=== PATIENT | female | born 1965 | race Caucasian/White ===

== ENCOUNTER 2020-06-03 08:46 | Emergency (ER) | payer SELFPAY ==
[2020-06-03 08:56] VITALS: BP 149/105; PULSE 75; RESP 16; TEMP 35.6; O2SAT 98; BMI 38.7
--- NOTE | 2020-06-03 09:45 | CT_ITS ---
EXAMINATION: CT ABDOMEN AND PELVIS WITHOUT CONTRAST CLINICAL INFORMATION: Left lower back pain radiating to left flank COMPARISON: CT abdomen and pelvis 08/17/2016 TECHNIQUE: Multidetector volumetric imaging was performed from the superior aspect of the liver through the pubic symphysis. Sagittal and coronal reformatted images were obtained on the technologist's workstation. This CT examination was performed using dose optimization techniques as appropriate, variously including the following: *Automated exposure control *Adjustment of mA and/or kV according to patient size (this includes techniques or standardized protocols for targeted exams where dose is matched to indication/reason for exam; i.e. extremities or head) *Use of iterative reconstruction technique DLP: 1102 mGy-cm FINDINGS: LUNG BASES: The visualized lung bases are unremarkable. LIVER, GALLBLADDER, AND BILIARY TREE: The liver is normal in size, shape, and attenuation. No focal hepatic lesion or biliary ductal dilatation is present. There are 2 radiopaque gallstones without wall thickening. The largest radiopaque stone measures 1.9 cm. PANCREAS: Unremarkable. SPLEEN: Unremarkable. ADRENAL GLANDS: Unremarkable. KIDNEYS AND URETERS: The kidneys are normal in size, shape, and attenuation. No hydronephrosis, hydroureter, or calculi seen. No perinephric stranding. There are left parapelvic renal cyst. BLADDER: Unremarkable. GASTROINTESTINAL TRACT: There is scattered stool, diverticuli and gas seen throughout the colon without significant distention. The small bowel loops are normal caliber. Appendix is normal. No inflammatory process seen in the abdomen. There is no free fluid. ABDOMINAL WALL: There is a supraumbilical midline abdominal wall hernia with intraperitoneal fat and trace fluid within. LYMPH NODES: Normal. VASCULAR: Unremarkable. PELVIC VISCERA: The uterus is anteverted and appears unremarkable. No free fluid or free air seen. OSSEOUS STRUCTURES: Minimal degenerative disc changes are present throughout lumbar spine. No listhesis, lytic or sclerotic process seen. IMPRESSION: Cholelithiasis without wall thickening or surrounding inflammatory changes. No change from last CT. Supraorbital small abdominal midline hernia with intraperitoneal fat and trace fluid, unchanged to previous study. Left renal parapelvic cyst. No radiopaque renal calculi or hydronephrosis seen. Scattered colonic diverticulosis without diverticulitis.
--- NOTE | 2020-06-03 10:03 | ED_ITS ---
HPI - Back Pain/Injury General Chief Complaint: Back Pain/Injury Stated Complaint: back pain Time Seen by Provider: 06/03/20 09:14 Source: patient Mode of arrival: ambulatory Limitations: no limitations History of Present Illness HPI Narrative: 54yoF c No Sig PMHx presenting to the ED c c/o left back pain for a few days now since this AM radiating to left flank/abdomen/groin c associated diarrhea. Related Data Previous Rx's Medication Instructions Recorded cyclobenzaprine 10 mg PO TID PRN #10 tab 06/03/20 lidocaine [Lidoderm] 1 patch TOPICAL DAILY #30 ea NS 06/03/20 naproxen 500 mg PO BID PRN #10 tab 06/03/20 tramadol 50 mg PO Q8H PRN #10 tab 06/03/20 Allergies Allergy/AdvReac Type Severity Reaction Status Date / Time No Known Allergies Allergy Unknown Unverified 05/02/20 16:12 Review of Systems Review of Systems: Denies: Trauma; FCS; Rash; H/A; CP; SOB; Neck Pain; N/V; UTI sx; Hematuria; Bowel/Bladder Incont; Focal weakness; Numbness; Radiation; Extr pain or swelling Yes all other systems are reviewed and are negative PMFSH Past Medical History Attestation statement: The following information was validated with the patient. Medical History No known health problems No known health problems Social History Social History Advance Directives: No Advance Directives Information Provided: Yes Physical Exam Vital Signs: Vital Signs: Vital Signs Temp Pulse Resp BP Pulse Ox 06/03/20 08:56 96.1 F L 75 16 149/105 H 98 Body Mass Index 38.7 vital signs have been reviewed as normal and appeared to be correct. Blood pressure normal. Heart rate normal. Respiration rate normal. Temperature normal. Oxygen saturation normal. Appearance: Alert. Oriented X3. No acute distress. Head: Normal external exam. Normocephalic. Atraumatic. No Beckman signs noted. No raccoon eyes noted Eyes: PERRLA. EOMI. Conjunctiva and sclera normal. Eyelids normal. ENT: EAC normal. TM's Normal. Pharynx normal. Uvula midline. Moist mucous membranes. No trismus noted. No drooling noted. No muffled voice noted. Neck: Normal inspection. Neck supple. FROM. No adenopathy. Thyroid Normal. No meningeal signs. No neck mass noted. CVS: Normal heart rate and rhythm. Heart sound normal. No murmurs noted. Pulses normal throughout. Respiratory: No respiratory distress. Painless inspiration. Breath sounds normal. No wheezes/rales/rhonchi noted. Chest nontender. No accessory muscle usage noted or decreased air movement noted. Abdomen: Soft and nontender. Bowel sounds normal in all 4 quadrants. No distention noted. No organomegaly noted. No visible injury noted. Back: No CVA tenderness. Full range of motion noted. No obvious deformities, or edema. Mild para-spinal muscular tenderness from lumbar region to coccyx. Full ROM in back and lower extremities. 5/5 strength hip extension/flexion, abduction, adduction. Mild Lumbar pain with hip flexion against resistance. Straight leg raise test negative on right; Straight leg raise test negative on left; Reflexes normal ankle and knee bilaterally; EHL motor strength normal bilaterally Skin: Skin warm and dry. Normal skin color. Normal skin turgor. No rashes/lesions/lacerations noted. Extremities: No lower extremity edema. Extremities exhibit normal range of motion. Extremities nontender. Neuro: Oriented X 3. No motor deficit. No sensory deficit. Reflexes normal. Course Course Course Narrative: Pt c likely muscular pain, but could be herniated disc. Neuro exam shows no deficits. Not c/w AAA/epidural abscess/dissection.No high risk Hx (Incont, fever, immunosupp, recent surgery/LP, coag, signif trauma, wt loss, puls mass, hx/o Ca, TB, or IVDU) to warrant MRI today. We will obtain a CT scan of abdomen and pelvis due to patient having pain radiating from the back to the left flank to the groin to evaluate for possible kidney stones and UA. Not c/w spinal fx. Not cauda equina syndrome. DC c meds and f/u if ct scan abd/pelvis without contrast WNL. MDM - Back Pain/Injury Medical Records Attestation: I reviewed the patient's medical records. Lab Data Attestation: I reviewed the patient's lab results. Labs: Lab Results 06/03/20 Range/Units 09:36 Urine Color YELLOW Urine Appearance CLEAR Urine pH 6.0 (5.0-8.0) Ur Specific [place] 1.020 (1.005-1.025) Urine Protein NEG (NEG-TRACE) MG/DL Urine Glucose (UA) NEG (NEG) MG/DL Urine Ketones NEG (NEG) MG/DL Urine Blood NEG (NEG) Urine Nitrite NEG (NEG) Ur Leukocyte Esterase NEG (NEG) Imaging Data CT scan - abdomen: Attestation: I personally reviewed and interpreted this imaging study as follows: Radiologist's impression: IMPRESSION: Cholelithiasis without wall thickening or surrounding inflammatory changes. No change from last CT. Supraorbital small abdominal midline hernia with intraperitoneal fat and trace fluid, unchanged to previous study. Left renal parapelvic cyst. No radiopaque renal calculi or hydronephrosis seen. Scattered colonic diverticulosis without diverticulitis. Discharge Plan Discharge Clinical Impression: Degenerative disc disease, lumbar, Diverticulosis, Renal cyst, Abdominal hernia, Cholelithiasis Patient Disposition: Home, Self-Care Instructions: Gallstones (ED), Diverticulosis (ED), Umbilical Hernia (ED), Degenerative Disc Disease (ED) Additional Instructions: follow-up with her primary care provider. Return if any new or worsening symptoms. Prescriptions: New cyclobenzaprine 10 mg tablet 10 mg PO TID PRN (Reason: muscle spasm) Qty: 10 RF: 0 naproxen 500 mg tablet 500 mg PO BID PRN (Reason: pain) Qty: 10 RF: 0 tramadol 50 mg tablet 50 mg PO Q8H PRN (Reason: pain) Qty: 10 RF: 0 lidocaine [Lidoderm] 5 % adhesive patch,medicated 1 patch topical DAILY Qty: 30 RF: 0
[2020-06-03 10:04] LABS: Glucose Urine UA NEG (NEG); Leukocyte Esterase Urine NEG (NEG); Nitrite Urine NEG (NEG); Urine Blood NEG (NEG); Urine Ketones NEG (NEG); Urine Protein NEG (NEG-TRACE)
[2020-06-03 10:07] LABS: Appearance Urine CLEAR; Color Urine YELLOW
[2020-06-03] MEDS: NaPROXEN 500 MG TABLET PO (10:24)
[2020-06-03] MEDS: Lidocaine 4 % Patch ADH..PATCH 1 PATCH TRANSDERMA (10:24)
== END 2020-06-03 11:40 | disposition home or self-care (01) ==
PROVIDERS: Physician Assistant Medical; Emergency Provider Emergency Medicine
DX: K80.20 Calculus of gallbladder without cholecystitis without obstruction (principal); M47.896 Other spondylosis, lumbar region; N28.1 Cyst of kidney, acquired; M54.5 Low back pain; Z79.899 Other long term (current) drug therapy
CPT/HCPCS: 74176; 81003; 99283; 99284

== ENCOUNTER 2020-09-02 20:57 | Emergency (ER) | payer OTHER, SELFPAY ==
[2020-09-02 21:19] VITALS: BP 135/75; PULSE 92; RESP 18; TEMP 37.1; O2SAT 97; BMI 38.7
[2020-09-02 23:55] VITALS: BP 143/86; PULSE 98; RESP 17; TEMP 37.2; O2SAT 100
--- NOTE | 2020-09-03 00:11 | ED_ITS ---
HPI - Animal Bite General Chief Complaint: Animal Bite Stated Complaint: Cat bite Time Seen by Provider: 09/02/20 23:59 Source: patient Mode of arrival: ambulatory Limitations: no limitations History of Present Illness HPI narrative: Patient comes emergency room complaining of a cat bites to the left distal forearm. Patient states it is an indoor cat, is fully immunized, it is her own cat. Patient states that her cat is very ?needy? constantly scratches her for attention and sometimes Pfizer, but yesterday it was a more severe bite. This morning, patient woke up with redness over the bite wounds on the wrist with streaks of redness extending into the proximal part of her arm. Patient states it is very tender to touch. Patient has had some chills, no fever. MD complaint: animal bite Related Data Previous Rx's Medication Instructions Recorded cyclobenzaprine 10 mg PO TID PRN #10 tab 06/03/20 lidocaine [Lidoderm] 1 patch TOPICAL DAILY #30 ea NS 06/03/20 naproxen 500 mg PO BID PRN #10 tab 06/03/20 tramadol 50 mg PO Q8H PRN #10 tab 06/03/20 amoxicillin-pot clavulanate 1 tab PO Q12H #20 tab 09/03/20 [Augmentin] Allergies Allergy/AdvReac Type Severity Reaction Status Date / Time No Known Allergies Allergy Unknown Verified 09/02/20 21:19 Review of Systems Review of Systems: Constitutional : No fever, chills, no fatigue, no malaise ENT/Mouth : No Hearing loss, No Ear Pain, No Nasal Congestion, No Sinus Pain, No Hoarseness, No sore throat, No Rhinorrhea, No Swallowing Difficulty Eyes: No Eye Pain, No Swelling, No Redness, No Foreign Body, No Discharge, No Vision Changes Cardiovascular : No Chest Pain, No SOB, No Dyspnea on Exertion, No Orthopnea, No Edema, No Palpitations Respiratory : No Cough, No Sputum, No Wheezing, No Smoke Exposure, No Dyspnea Gastrointestinal : No Nausea, No Vomiting, No Diarrhea, No Constipation, No abdominal Pain, No Hematochezia, No Melena Genitourinary : no irregular bleeding, No Dysuria, No Urinary Frequency, No Hematuria, No Urinary Incontinence, No Urgency, No Flank Pain, No Urinary Flow Changes, No Hesitancy Musculoskeletal : No joint pain, No Myalgias, No Joint Swelling Skin : Puncture wound from a cat bite and erythema and pain on the left forearm Neuro : No Weakness, No Numbness, No Paresthesias, No Loss of Consciousness, No Dizziness, No Headache Psych : No Anxiety/Panic, No Depression, No SI/HI/AH/VH, No Social Issues, Heme/Lymph: No Bruising, No Bleeding,No Lymphadenopathy Endocrine : No Polyuria, No Polydipsia, No Temperature Intolerance PMF Past Medical History Medical History No known health problems No known health problems Social History Social History Advance Directives: No Physical Exam Vital Signs: Vital Signs: Last Vital Signs Temp 99.0 F 09/02/20 23:55 Pulse 98 09/02/20 23:55 Resp 17 09/02/20 23:55 BP 143/86 H 09/02/20 23:55 Pulse Ox 100 09/02/20 23:55 Body Mass Index 38.7 Appearance: Alert. Oriented X3. No acute distress. Eyes: Pupils equal, round and reactive to light. ENT: Pharynx normal. Neck: Normal inspection. Neck supple. No lymph nodes noted. No crepitus CVS: Normal heart rate and rhythm. Pulses normal. Normal S1 and S2 Respiratory: No respiratory distress. Breath sounds normal. No Wheezing. No rales Abdomen: Soft and nontender. No rigidity. No distention. good BS x4 Skin: Skin warm and dry. Erythema in the left upper extremity with this streaks running up towards the elbow Extremities: No lower extremity edema. Left arm is tender to touch over the erythematous sites, no pus drainage. Patient is able to flex and extend wrist elbow and shoulder, patient able to open and close all fingers in her left hand Neuro: Oriented X 3. No motor deficit. No sensory deficit. Moving all extermities. No slurred speech. Course Course Course Narrative: Patient received IV Zosyn, white blood cell count is 11.6, lactic acid 0.9, patient has no fever, no tachycardia, feels otherwise well. At this time sepsis is not suspected. I discussed with the patient continuing IV antibiotics inpatient versus outpatient p.o. antibiotics, patient states that she prefers to go home. I discussed with the patient that if she has any worsening redness, swelling, fever, any new symptoms, she needs to return to the emergency room. MDM - Animal Bite Lab Data Result diagrams: 09/03/20 00:22 09/03/20 00:22 Labs: Lab Results 09/03/20 09/03/20 09/03/20 Range/Units 00:22 00:22 00:22 WBC 11.6 H (4.8-10.8) X10*3/uL RBC 4.62 (4.20-5.50) X10*6/uL Hgb 13.1 (12.0-16.0) g/dl Hct 39.3 (37-47) % MCV 85.1 (80-98) fL MCH 28.4 (27.0-33.0) pg MCHC 33.3 (31.0-35.0) g/dl RDW 13.5 (11.0-16.0) % Plt Count 288 (160-400) X10*3/uL MPV 10.1 (9.4-12.3) fL Immature Gran % (Auto) 0.3 (0.0-0.4) % Neut % (Auto) 77.3 H (45-73) % Lymph % (Auto) 13.8 L (20-40) % [place] % (Auto) 7.8 (2-11) % Eos % (Auto) 0.5 (0-4) % Baso % (Auto) 0.3 (0-2) % Lymph # (Auto) 1.6 (1.2-4.9) X10*3/uL [place] # (Auto) 0.9 (0.1-1.2) X10*3/uL Eos # (Auto) 0.1 (0.0-0.4) X10*3/uL Baso # (Auto) 0.0 (0.0-0.2) X10*3/uL Abs Immat Gran (auto) 0.03 (0.00-0.03) X10*3/uL Absolute Neuts (auto) 9.0 H (2.0-8.3) X10*3/uL Absolute Nucleated RBC 0.000 (0.0-0.012) X10*3/uL Nucleated RBC % (auto) 0.0 (0.0-0.2) /100WBC Sodium 140 (135-145) mmol/L Potassium 4.1 (3.3-5.1) mmol/l Chloride 104 (96-108) mmol/L Carbon Dioxide 24 (22-29) mmol/L Anion Gap 16 (12-20) BUN 15 (9-16) mg/dL Creatinine 0.72 (0.5-1.4) mg/dL Estim Creat Clear Calc 111.5 Estimated GFR > 60 Random Glucose 99 (60-115) mg/dL Lactic Acid 0.9 (0.5-2.0) mmol/L Calcium 9.0 (8.4-10.2) mg/dL Discharge Plan Discharge Clinical Impression: Cat bite Patient Disposition: Home, Self-Care Instructions: Animal Bite (ED) Additional Instructions: If the skin infection worsens, if you see any pus draining, worsening redness, worsening swelling, fever or any new symptoms, please return to the emergency room. Please follow-up with your primary care physician tomorrow. If you have any worsening or new symptoms, please return to the emergency room or call 911 Prescriptions: New amoxicillin-pot clavulanate [Augmentin] 875-125 mg tablet 1 tab PO Q12H Qty: 20 RF: 0 No Action cyclobenzaprine 10 mg tablet 10 mg PO TID PRN (Reason: muscle spasm) Qty: 10 RF: 0 naproxen 500 mg tablet 500 mg PO BID PRN (Reason: pain) Qty: 10 RF: 0 tramadol 50 mg tablet 50 mg PO Q8H PRN (Reason: pain) Qty: 10 RF: 0 lidocaine [Lidoderm] 5 % adhesive patch,medicated 1 patch topical DAILY Qty: 30 RF: 0
[2020-09-03 00:31] LABS: MANUAL DIFF FLAG NO
[2020-09-03 00:32] LABS: Basophils Percent Auto 0.3 % (0-2); Eosinophils Absolute Auto 0.1 X10*3/uL (0.0-0.4); Eosinophils Percent Auto 0.5 % (0-4); Hematocrit 39.3 % (37-47); Hemoglobin 13.1 g/dl (12.0-16.0); Imm Gran Abs Auto 0.03 X10*3/uL (0.00-0.03); Imm Gran Pct Auto 0.3 % (0.0-0.4); Lymphocytes Absolute Auto 1.6 X10*3/uL (1.2-4.9); Lymphocytes Percent Auto 13.8 % (20-40); Mean Corpuscular HGB Conc 33.3 g/dl (31.0-35.0); Mean Corpuscular Hemoglobin 28.4 pg (27.0-33.0); Mean Corpuscular Volume 85.1 fL (80-98); Mean Platelet Volume 10.1 fL (9.4-12.3); Monocytes Absolute Auto 0.9 X10*3/uL (0.1-1.2); Monocytes Percent Auto 7.8 % (2-11); Neutrophils Percent Auto 77.3 % (45-73); Platelet Count 288 X10*3/uL (160-400); Red Blood Count 4.62 X10*6/uL (4.20-5.50); Red Cell Distribution Width 13.5 % (11.0-16.0); White Blood Count 11.6 X10*3/uL (4.8-10.8)
[2020-09-03 00:51] LABS: Lactic Acid 0.9 mmol/L (0.5-2.0)
[2020-09-03 00:55] LABS: Anion Gap 16 (12-20); Blood Urea Nitrogen 15 mg/dL (9-16); Carbon Dioxide 24 mmol/L (22-29); Chloride 104 mmol/L (96-108); Creatinine Clr Calc Pharmacy 111.5; Estimated Glomerular Filt Rate > 60; Glucose Random 99 mg/dL (60-115); Potassium 4.1 mmol/l (3.3-5.1); Sodium 140 mmol/L (135-145)
[2020-09-03] MEDS: Piperacillin Sodium/Tazobactam 3.375 GM in 0.9 % Sodium Chloride 50 ML IV (01:04)
== END 2020-09-03 02:31 | disposition home or self-care (01) ==
PROVIDERS: Emergency Provider Emergency Medicine
DX: S51.852A Open bite of left forearm, initial encounter (principal); W55.01XA Bitten by cat, initial encounter; Y93.9 Activity, unspecified; Y92.019 Unspecified place in single-family (private) house as the place of occurrence of the external cause; Y99.9 Unspecified external cause status
CPT/HCPCS: 36415; 80048; 83605; 85025; 87040; 96365; 99284; J2543

== ENCOUNTER 2020-09-04 19:38 | Inpatient (IN) | payer OTHER, SELFPAY ==
[2020-09-04 19:42] VITALS: BP 127/76; PULSE 79; RESP 18; TEMP 36.3; O2SAT 100; BMI 45.1
--- NOTE | 2020-09-04 20:11 | ED.GENADULT ---
HPI - General Adult General Chief complaint: General Medical Stated complaint: cat bite Time Seen by Provider: 09/05/20 00:00 Source: patient Mode of arrival: ambulatory Limitations: no limitations History of Present Illness HPI narrative: Patient presents to ED for worsening redness of left forearm after being bitten by CT. Patient was seen here 2 days ago for cat bite and only had redness on the dorsal aspect of her arm. Patient now states redness spread beyond the marker nurse increased swelling with warmth. Patient denies any chest pain or shortness of breath. Patient states she has been compliant with antibiotics. Related Data Home Medications Medication Instructions Recorded Confirmed Vitamin C PO DAILY 09/05/20 melatonin PO BEDTIME 09/05/20 Allergies Allergy/AdvReac Type Severity Reaction Status Date / Time No Known Allergies Allergy Unknown Verified 09/02/20 21:19 Review of Systems Review of Systems: Yes all other systems are reviewed and are negative Constitutional: Constitutional: Reports as per HPI and Reports no additional constitutional complaints Eyes: Eyes: Reports as per HPI and Reports no additional eye complaints ENT: Reports system reviewed and no additional complaints, except as documented and Reports as per HPI Cardiovascular: Cardiovascular: Reports as per HPI and Reports no additional cardiovascular complaints Respiratory: Respiratory: Reports as per HPI and Reports no additional respiratory complaints Gastrointestinal: Gastrointestinal: Reports as per HPI and Reports no additional gastrointestinal complaints Genitourinary: Genitourinary: Reports no additional female genitourinary complaints and Reports as per HPI Musculoskeletal: Musculoskeletal: Reports no additional musculoskeletal complaints and Reports as per HPI Comments: Right forearm redness Neurologic: Reports system reviewed and no additional complaints, except as documented and Reports as per HPI Psychiatric: Psychiatric: Reports no additional psychiatric complaints and Reports as per HPI [facility] Past Medical History Medical History No known health problems No known health problems Social History Social History Advance Directives: No Advance Directives Information Provided: No Physical Exam Vital Signs: Vital Signs: Last Vital Signs Temp 98.3 F 09/04/20 22:07 Pulse 73 09/04/20 22:07 Resp 17 09/04/20 22:07 BP 129/67 09/04/20 22:07 Pulse Ox 98 09/04/20 22:07 Body Mass Index 45.1 Const: General: cooperative, healthy appearing, comfortable, no acute distress, well developed, alert and awake Orientation/consciousness: patient oriented x3 HENMT: Head: Yes normal to inspection, Yes No palpable skull fracture present, Yes normocephalic and Yes atraumatic Eyes: General: appearance normal, both eyes and all related structures Neck: Neck: Yes normal visual inspection, Yes full ROM, Yes no lymphadenopathy, Yes no meningeal signs, Yes trachea midline, Yes supple and No tender Chest: Chest palpation & inspection: normal inspection of the chest and normal palpation of entire chest wall Resp: Effort & Inspection: normal respiratory effort and able to speak in complete sentences Auscultation: clear to auscultation bilaterally Cardio: Jugular venous distension: no JVD Heart sounds: S1 normal heart sound present and S2 normal heart sound present GI: Inspection: Yes normal to inspection and No abdominal wall ecchymosis Palpation (GI): Soft to palpation, not firm, nontender, no guarding and not rigid : General: No CVA tenderness and Yes no CVA tenderness Back/Spine/Pelvis: Back: no CVA tenderness, No CVA tenderness and No back tenderness Skin: Other: left posterior forearm redness and tenderness Neuro: General: patient oriented x3, gait normal, no meningeal signs and CN's II-XI intact bilaterally Extrem: Other: left posteroir forearm redness and warmth. negative for fluctulance General: Yes normal to inspection and Yes full ROM Psych: Appearance: grossly normal, well kempt and not disheveled Course Course Course Narrative: Patient was evaluated by nurse Sarah who states she saw the patient 2 days ago and redness on the posterior aspect of her arm was not present. Patient will have labs imaging, IV antibiotics ordered. Reevaluation(s) Reevaluation #1: Due yo worsening redness and elevated ERCP an ESR. Patient admitted to hospitalist for IV antibiotics for cat bite. Hospitalist accepted case. X-ray negative for osteomyelitis negative for blood cell counts. Time: 00:22 Medical Decision Making [facility] Narrative Medical decision making narrative: Cellulitis due to cat bite Lab Data Result diagrams: 09/04/20 20:43 09/04/20 20:43 Labs: Lab Results 09/04/20 09/04/20 09/04/20 Range/Units 20:43 20:43 20:43 WBC 10.3 (4.8-10.8) X10*3/uL RBC 4.39 (4.20-5.50) X10*6/uL Hgb 12.3 (12.0-16.0) g/dl Hct 37.3 (37-47) % MCV 85.0 (80-98) fL MCH 28.0 (27.0-33.0) pg MCHC 33.0 (31.0-35.0) g/dl RDW 13.6 (11.0-16.0) % Plt Count 265 (160-400) X10*3/uL MPV 10.0 (9.4-12.3) fL Immature Gran % (Auto) 0.3 (0.0-0.4) % Neut % (Auto) 77.4 H (45-73) % Lymph % (Auto) 13.2 L (20-40) % [place] % (Auto) 8.2 (2-11) % Eos % (Auto) 0.7 (0-4) % Baso % (Auto) 0.2 (0-2) % Lymph # (Auto) 1.4 (1.2-4.9) X10*3/uL [place] # (Auto) 0.8 (0.1-1.2) X10*3/uL Eos # (Auto) 0.1 (0.0-0.4) X10*3/uL Baso # (Auto) 0.0 (0.0-0.2) X10*3/uL Abs Immat Gran (auto) 0.03 (0.00-0.03) X10*3/uL Absolute Neuts (auto) 8.0 (2.0-8.3) X10*3/uL Absolute Nucleated RBC 0.000 (0.0-0.012) X10*3/uL Nucleated RBC % (auto) 0.0 (0.0-0.2) /100WBC ESR (0-20) MM/HR PT (10.8-13.0) SEC INR (0.9-1.1) APTT (24.1-38.0) SEC Sodium 140 (135-145) mmol/L Potassium 3.9 (3.3-5.1) mmol/l Chloride 106 (96-108) mmol/L Carbon Dioxide 24 (22-29) mmol/L Anion Gap 14 (12-20) BUN 12 (9-16) mg/dL Creatinine 0.63 (0.5-1.4) mg/dL Estim Creat Clear Calc 139.1 Estimated GFR > 60 Random Glucose 107 (60-115) mg/dL Lactic Acid 0.9 (0.5-2.0) mmol/L Calcium 8.5 (8.4-10.2) mg/dL Total Bilirubin 0.3 (0.0-1.0) mg/dL AST 14 (5-31) U/L ALT 20 (0-31) U/L Alkaline Phosphatase 75 (39-117) U/L C-Reactive Protein 18.12 H (< or = 0.50) mg/dL Total Protein 6.6 (6.5-8.0) g/dL Albumin 3.7 (3.5-5.0) g/dL 09/04/20 09/04/20 Range/Units 20:43 20:43 WBC (4.8-10.8) X10*3/uL RBC (4.20-5.50) X10*6/uL Hgb (12.0-16.0) g/dl Hct (37-47) % MCV (80-98) fL MCH (27.0-33.0) pg MCHC (31.0-35.0) g/dl RDW (11.0-16.0) % Plt Count (160-400) X10*3/uL MPV (9.4-12.3) fL Immature Gran % (Auto) (0.0-0.4) % Neut % (Auto) (45-73) % Lymph % (Auto) (20-40) % [place] % (Auto) (2-11) % Eos % (Auto) (0-4) % Baso % (Auto) (0-2) % Lymph # (Auto) (1.2-4.9) X10*3/uL [place] # (Auto) (0.1-1.2) X10*3/uL Eos # (Auto) (0.0-0.4) X10*3/uL Baso # (Auto) (0.0-0.2) X10*3/uL Abs Immat Gran (auto) (0.00-0.03) X10*3/uL Absolute Neuts (auto) (2.0-8.3) X10*3/uL Absolute Nucleated RBC (0.0-0.012) X10*3/uL Nucleated RBC % (auto) (0.0-0.2) /100WBC ESR 50 H (0-20) MM/HR PT 14.2 H (10.8-13.0) SEC INR 1.2 H (0.9-1.1) APTT 34.4 (24.1-38.0) SEC Sodium (135-145) mmol/L Potassium (3.3-5.1) mmol/l Chloride (96-108) mmol/L Carbon Dioxide (22-29) mmol/L Anion Gap (12-20) BUN (9-16) mg/dL Creatinine (0.5-1.4) mg/dL Estim Creat Clear Calc Estimated GFR Random Glucose (60-115) mg/dL Lactic Acid (0.5-2.0) mmol/L Calcium (8.4-10.2) mg/dL Total Bilirubin (0.0-1.0) mg/dL AST (5-31) U/L ALT (0-31) U/L Alkaline Phosphatase (39-117) U/L C-Reactive Protein (< or = 0.50) mg/dL Total Protein (6.5-8.0) g/dL Albumin (3.5-5.0) g/dL Discharge Plan Discharge Clinical Impression: Cellulitis, Cat bite involving extremity Patient Disposition: Admitted As Inpatient
--- NOTE | 2020-09-04 20:12 | XR_ITS ---
EXAMINATION: XR FOREARM, LEFT CLINICAL INFORMATION: Left forearm cellulitis. Question osteomyelitis COMPARISON: None TECHNIQUE: AP and lateral views of the left forearm were obtained. FINDINGS: The left radius and ulna are intact. No cortical destruction or periostitis. There is soft tissue swelling and reticulation of the dorsal subcutaneous fat. No radiopaque foreign body. XR/XR forearm LT 2V IMPRESSION: There is soft tissue swelling and reticulation of the dorsal subcutaneous fat system with edema or soft tissue infection such as cellulitis. No soft tissue gas or radiopaque foreign body seen. No overt osseous abnormality to suggest osteomyelitis. Consider MRI as clinically indicated.
[2020-09-04 20:55] LABS: MANUAL DIFF FLAG NO
[2020-09-04] MEDS: 0.9 % Sodium Chloride 1,000 ML 999 ML IV (20:55)
[2020-09-04] MEDS: Piperacillin Sodium/Tazobactam 3.375 GM in 0.9 % Sodium Chloride 50 ML IV (20:56)
[2020-09-04 20:57] LABS: Basophils Percent Auto 0.2 % (0-2); Eosinophils Absolute Auto 0.1 X10*3/uL (0.0-0.4); Eosinophils Percent Auto 0.7 % (0-4); Hematocrit 37.3 % (37-47); Hemoglobin 12.3 g/dl (12.0-16.0); Imm Gran Abs Auto 0.03 X10*3/uL (0.00-0.03); Imm Gran Pct Auto 0.3 % (0.0-0.4); Lymphocytes Absolute Auto 1.4 X10*3/uL (1.2-4.9); Lymphocytes Percent Auto 13.2 % (20-40); Monocytes Absolute Auto 0.8 X10*3/uL (0.1-1.2); Monocytes Percent Auto 8.2 % (2-11); Neutrophils Percent Auto 77.4 % (45-73); Platelet Count 265 X10*3/uL (160-400); Red Blood Count 4.39 X10*6/uL (4.20-5.50); Red Cell Distribution Width 13.6 % (11.0-16.0); White Blood Count 10.3 X10*3/uL (4.8-10.8)
[2020-09-04 21:04] LABS: INTERNATIONAL NORM RATIO 1.2 (0.9-1.1); Prothrombin Time 14.2 SEC (10.8-13.0)
[2020-09-04 21:06] LABS: Partial Thromboplastin Time 34.4 SEC (24.1-38.0)
[2020-09-04 21:13] LABS: Lactic Acid 0.9 mmol/L (0.5-2.0)
[2020-09-04 21:18] LABS: Alanine Aminotransferase 20 U/L (0-31); Albumin Level 3.7 g/dL (3.5-5.0); Alkaline Phosphatase 75 U/L (39-117); Anion Gap 14 (12-20); Aspartate Amino Transferase 14 U/L (5-31); Bilirubin Total 0.3 mg/dL (0.0-1.0); Blood Urea Nitrogen 12 mg/dL (9-16); Calcium 8.5 mg/dL (8.4-10.2); Carbon Dioxide 24 mmol/L (22-29); Chloride 106 mmol/L (96-108); Creatinine Clr Calc Pharmacy 139.1; Estimated Glomerular Filt Rate > 60; Glucose Random 107 mg/dL (60-115); Potassium 3.9 mmol/l (3.3-5.1); Sodium 140 mmol/L (135-145); Total Protein 6.6 g/dL (6.5-8.0)
[2020-09-04 22:07] VITALS: BP 129/67; PULSE 73; RESP 17; TEMP 36.8; O2SAT 98
[2020-09-04 22:45] LABS: C Reactive Protein 18.12 mg/dL (< or = 0.50)
[2020-09-04 23:18] LABS: Erythrocyte Sedimentation Rate 50 MM/HR (0-20)
[2020-09-05] VITALS (7 sets, daily range): BP systolic 111–146; BP diastolic 52–81; PULSE 65–80; RESP 16–20; TEMP 35.9–37.1; O2SAT 96–100; BMI 45.1
[2020-09-05] MEDS: metroNIDAZOLE/NS 500 MG/100 ML PIGGYBACK 100 MG IV ×3 (00:42→15:29)
[2020-09-05 00:54] LABS: COVID-19 Test Negative (Negative)
--- NOTE | 2020-09-05 01:10 | PC.NURSE ---
REPORT CALLED TO STUART HO.
[2020-09-05] MEDS: cefTRIAXone sodium 1 GM in 0.9 % Sodium Chloride 50 ML IV (02:13)
[2020-09-05] MEDS: Acetaminophen 325 MG TABLET 650 MG PO ×2 (02:13→15:26)
[2020-09-05] MEDS: Enoxaparin Sodium 40 MG/0.4 ML SYRINGE SUBCUT (02:13)
[2020-09-05] MEDS: Melatonin 3 MG TABLET 21 MG PO (02:33)
[2020-09-05 04:39] LABS: MANUAL DIFF FLAG NO
[2020-09-05 04:42] LABS: Basophils Percent Auto 0.3 % (0-2); Eosinophils Absolute Auto 0.1 X10*3/uL (0.0-0.4); Eosinophils Percent Auto 0.8 % (0-4); Hematocrit 34.6 % (37-47); Hemoglobin 11.3 g/dl (12.0-16.0); Imm Gran Abs Auto 0.03 X10*3/uL (0.00-0.03); Imm Gran Pct Auto 0.3 % (0.0-0.4); Lymphocytes Absolute Auto 1.9 X10*3/uL (1.2-4.9); Lymphocytes Percent Auto 21.1 % (20-40); Mean Corpuscular HGB Conc 32.7 g/dl (31.0-35.0); Mean Corpuscular Hemoglobin 27.8 pg (27.0-33.0); Mean Corpuscular Volume 85.2 fL (80-98); Monocytes Absolute Auto 0.8 X10*3/uL (0.1-1.2); Monocytes Percent Auto 8.8 % (2-11); Neutrophils Absolute Auto 6.2 X10*3/uL (2.0-8.3); Neutrophils Percent Auto 68.7 % (45-73); Platelet Count 252 X10*3/uL (160-400); Red Blood Count 4.06 X10*6/uL (4.20-5.50); Red Cell Distribution Width 13.5 % (11.0-16.0)
--- NOTE | 2020-09-05 05:01 | P.HPHOSP_ITS ---
History of Present Illness Date of Service: 09/04/20 Chief Complaint: Cat bite This is a 55-year-old female who presents to the hospital initially on Wednesday with complaints of cat bite and right arm pain. Patient reports that she got bit by her cat on Wednesday, and her right arm started swelling and has significant 9/10 pain which prompted her to come to the hospital on Wednesday. She was given an IV antibiotic on presentation, and discharged on Augmentin. Patient reports that she returns today with worsening of the redness of her arm. her pain has significantly improved but the redness has extended now to include all of her forearm up to the elbow. She is not aware of any lymphadenopathy. She has no fever or chills but reports high temperature to be 99.5. Patient denies any nausea vomiting, no abdominal pain, no chest pain, no diarrhea constipation, no lower extremity edema, no urinary symptoms. No headache or shortness of breath. No palpitations. On arrival to the ED hemodynamically stable with no significant abnormal vitals Labs are significant for WBC count of 9.0, hemoglobin of 11.3, ESR today's 50, sodium of 141, potassium 3.9, CRP of 18.1 Past medical history: Denies any history Surgical history: Denies Family history: Denies Social history: Comes from home, denies tobacco alcohol or illicit drugs Review of Systems Review of Systems: Yes all other systems are reviewed and are negative Neurologic: Reports system reviewed and no additional complaints, except as documented and Reports as per [facility] Medical History No known health problems No known health problems Social History Household Members: Family and Children Housing: Apartment Do you presently have visiting nurse or other home services: No Smoking Status: Never smoker Second Hand Smoke Exposure: No Use of substances other than those prescribed or required for medical reasons: Yes Substance Use Type: Marijuana Substance Use Frequency: Weekly Last Used Substance: Days (ago) Currently Displaying Signs/Symptoms of Drug Intoxication Withdrawal: No Any prior treatment program specific to substance use: No Have you been hit, kicked, punched, or otherwise hurt by someone within the past year? If so, by whom?: No Do you feel safe in your current relationship?: No Is there a partner from a previous relationship who is making you feel unsafe now?: No Are you made to feel afraid or neglected: No Advance Directives: No Advance Directives Information Provided: No Advance Directives on File: No Do you have thoughts of harming others: None Do you have a plan to hurt others: No Plan Recently lost weight without trying: No Meds Allergies Allergy/AdvReac Type Severity Reaction Status Date / Time No Known Allergies Allergy Unknown Verified 09/02/20 21:19 Home Medications Medication Instructions Recorded Confirmed Type Vitamin C PO DAILY 09/05/20 History melatonin PO BEDTIME 09/05/20 History Physical Exam Vital Signs and Narrative: Vital Signs: Last Vital Signs Temp 98.3 F 09/05/20 01:35 Pulse 80 09/05/20 01:35 Resp 20 09/05/20 01:35 BP 146/78 H 09/05/20 01:35 Pulse Ox 100 09/05/20 01:35 Body Mass Index 45.1 Const: General: cooperative and no acute distress Orientation/consciousness: patient oriented x3 Eyes: General: appearance normal, both eyes and all related structures Resp: Effort & Inspection: normal respiratory effort and able to speak in complete sentences Cardio: Rate: regular rate Rhythm: regular rhythm GI: Palpation (GI): Soft to palpation Auscultation: normal bowel sounds Skin: Other: Has erythema of the left forearm Neuro: General: patient oriented x3 Cognition (Neuro): normal cognition Extrem: General: Yes normal to inspection and Yes no pedal edema Results Labs CBC and Chem 7: 09/05/20 04:32 09/04/20 20:43 Labs: Laboratory Results - last 24 hr 09/04/20 09/04/20 09/04/20 20:43 20:43 20:43 MCV 85.0 MCH 28.0 MCHC 33.0 RDW 13.6 Plt Count 265 MPV 10.0 Immature Gran % (Auto) 0.3 Neut % (Auto) 77.4 H Lymph % (Auto) 13.2 L [place] % (Auto) 8.2 Eos % (Auto) 0.7 Baso % (Auto) 0.2 Lymph # (Auto) 1.4 [place] # (Auto) 0.8 Eos # (Auto) 0.1 Baso # (Auto) 0.0 Abs Immat Gran (auto) 0.03 Absolute Neuts (auto) 8.0 Absolute Nucleated RBC 0.000 Nucleated RBC % (auto) 0.0 ESR PT INR APTT Anion Gap 14 Estim Creat Clear Calc 139.1 Estimated GFR > 60 Random Glucose 107 Lactic Acid 0.9 Calcium 8.5 Total Bilirubin 0.3 AST 14 ALT 20 Alkaline Phosphatase 75 C-Reactive Protein 18.12 H Total Protein 6.6 Albumin 3.7 COVID-19 (MARK) COVID-19 Clin Com 09/04/20 09/04/20 09/05/20 20:43 20:43 00:32 MCV MCH MCHC RDW Plt Count MPV Immature Gran % (Auto) Neut % (Auto) Lymph % (Auto) [place] % (Auto) Eos % (Auto) Baso % (Auto) Lymph # (Auto) [place] # (Auto) Eos # (Auto) Baso # (Auto) Abs Immat Gran (auto) Absolute Neuts (auto) Absolute Nucleated RBC Nucleated RBC % (auto) ESR 50 H PT 14.2 H INR 1.2 H APTT 34.4 Anion Gap Estim Creat Clear Calc Estimated GFR Random Glucose Lactic Acid Calcium Total Bilirubin AST ALT Alkaline Phosphatase C-Reactive Protein Total Protein Albumin COVID-19 (MARK) Negative COVID-19 Clin Com See Note 09/05/20 04:32 MCV 85.2 MCH 27.8 MCHC 32.7 RDW 13.5 Plt Count 252 MPV 10.0 Immature Gran % (Auto) 0.3 Neut % (Auto) 68.7 Lymph % (Auto) 21.1 [place] % (Auto) 8.8 Eos % (Auto) 0.8 Baso % (Auto) 0.3 Lymph # (Auto) 1.9 [place] # (Auto) 0.8 Eos # (Auto) 0.1 Baso # (Auto) 0.0 Abs Immat Gran (auto) 0.03 Absolute Neuts (auto) 6.2 Absolute Nucleated RBC 0.000 Nucleated RBC % (auto) 0.0 ESR PT INR APTT Anion Gap Estim Creat Clear Calc Estimated GFR Random Glucose Lactic Acid Calcium Total Bilirubin AST ALT Alkaline Phosphatase C-Reactive Protein Total Protein Albumin COVID-19 (MARK) COVID-19 Clin Com Imaging Radiologist's Impressions: Impressions Forearm X-Ray 09/04/20 20:12 IMPRESSION: There is soft tissue swelling and reticulation of the dorsal subcutaneous fat system with edema or soft tissue infection such as cellulitis. No soft tissue gas or radiopaque foreign body seen. No overt osseous abnormality to suggest osteomyelitis. Consider MRI as clinically indicated. Assessment and Plan (1) Cellulitis: Qualifiers: Site of cellulitis: extremity Site of cellulitis of extremity: upper extremity Laterality: left Qualified Code(s): L03.114 - Cellulitis of left upper limb Status: Acute (2) Cat bite involving extremity: Status: Acute 55-year-old who presents with cap by. Failed outpatient therapy # cellulitis of forearm - secondary to cat bite - treated with Augmentin with rapid progression of erythema - has elevated ESR and CRP Plan: - will start patient on ceftriaxone and Flagyl - follow cultures # cat bite - given failed outpatient therapy and increase erythema will start ceftriaxone and Flagyl as above - follow cultures DVT prophylaxis: Lovenox
[2020-09-05 05:03] LABS: Anion Gap 14 (12-20); Blood Urea Nitrogen 9 mg/dL (9-16); Calcium 8.4 mg/dL (8.4-10.2); Carbon Dioxide 25 mmol/L (22-29); Chloride 106 mmol/L (96-108); Creatinine Clr Calc Pharmacy 134.9; Estimated Glomerular Filt Rate > 60; Glucose Random 94 mg/dL (60-115); Potassium 3.9 mmol/l (3.3-5.1); Sodium 141 mmol/L (135-145)
[2020-09-05] MEDS: 0.9 % Sodium Chloride Flush 3 ML SYRINGE IVFLUSH ×2 (07:20→15:28)
--- NOTE | 2020-09-05 09:25 | MHC.CM.PN ---
PATIENT LIVES WITH HER ADULT DAUGHTER. PATIENT DROVE SELF HERE. SHE IS FULLY INDEPENDENT WITH HER ADLS. PLAN IS FOR DISCHARGE HOME BY TOMORROW (09/06) WITH NO SERVICES. MAY REQUIRE A RETURN TO WORK NOTE.
--- NOTE | 2020-09-05 09:28 | MHC.CM.PN ---
CALL TO [facility] – [place] - [facility] LOCATION ([id number]) PATIENT IS INACTIVE WITH PCP. PATIENT ONLY NEEDS TO CHOOSE A PCP, AND SHE CAN RESUME SERVICES. PATIENT GIVEN [facility] – [place] PROVIDER LIST. SHE REPORTS NO NEED FOR ASSISTANCE IN SECURING A PCP. CASE MANAGEMENT AVAILABLE IF NEEDED.
--- NOTE | 2020-09-05 10:08 | HO.PM.IMPN ---
Subjective Subjective Date of Service: 09/05/20 Interval History: Patient admitted for left forearm cellulitis, patient feels redness and swelling is improving, denies any fever chills no other acute issues since admission no nausea vomiting tolerating diet. Review of Systems General no headache, no dizziness, no fever chills. CVS no chest, pain, no palpitation. Respiratory no cough, no shortness of breath. Gastrointestinal no nausea, no vomiting, no abdominal pain Physical Exam Vital Signs: Vital Signs: Last Vital Signs Temp 97.9 F 09/05/20 08:00 Pulse 68 09/05/20 08:00 Resp 20 09/05/20 08:00 BP 144/71 H 09/05/20 08:00 Pulse Ox 97 09/05/20 08:00 Body Mass Index 45.1 General no acute distress. Neck supple no JVD. CVS regular rate rhythm, Respiratory lungs clear to auscultation, no respiratory distress Gastrointestinal abdomen soft, nontender, bowel sounds audible Left upper Extremity redness extending towards elbow, no induration, site of teeth trisha dry and clean with no fluctuation no drainage,redness and swelling improving Neuro nonfocal patient moving all 4 extremity speech clear. Skin no rash Objective Data Current Medications Generic Name Dose Route Start Last Admin Trade Name Freq PRN Reason Stop Dose Admin Acetaminophen 650 mg 09/04/20 23:44 09/05/20 02:13 Acetaminophen 325 Mg Tablet PO 650 mg Q6H PRN Administration Pain, Mild (Pain Scale 1-3) Docusate Sodium 100 mg 09/04/20 23:44 Docusate Sodium 100 Mg Capsule PO DAILY PRN Constipation Enoxaparin Sodium 40 mg 09/04/20 23:45 09/05/20 02:13 Enoxaparin Sodium 40 Mg/0.4 Ml Syringe SUBCUT 40 mg Q24H ZACK Administration Ceftriaxone Sodium 1 gm/ 50 mls @ 100 mls/hr 09/04/20 23:45 09/05/20 02:56 Sodium Chloride IV Infused Q24H ZACK Infusion Metronidazole 500 mg in 100 mls @ 100 mls/hr 09/04/20 23:45 09/05/20 08:20 Flagyl IV Infused Q8H ZACK Infusion Melatonin 21 mg 09/05/20 21:00 09/05/20 02:33 Melatonin 3 Mg Tablet PO 21 mg BEDTIME ZACK Administration Ondansetron HCl 4 mg 09/04/20 23:44 Ondansetron Hcl 4 Mg/2 Ml Vial IVPUSH Q8H PRN Nausea and Vomiting Sodium Chloride 3 ml 09/05/20 00:00 09/05/20 07:20 0.9 % Sodium Chloride Flush 3 Ml Syringe IVFLUSH 3 ml QSHIFT ZACK Administration Labs CBC & Chem 7: 09/05/20 04:32 09/05/20 04:32 Assessment and Plan (1) Cellulitis: Status: Acute (2) Cat bite involving extremity: Status: Acute Assessment and Plan: 55-year-old who presents with cap by. Failed outpatient therapy # left forearm cellulitis due to cat bite Patient failed outpatient antibiotic treatment with Augmentin since noted to have worsening swelling and redness extending towards left elbow, in the ER noted to have elevated ESR and CRP, normal White cell count, no fever continue IV Flagyl and ceftriaxone day 2 Blood cultures negative from September 03, repeat blood culture September 04 is pending. Possible discharge in next 24 hours if cellulitis continue to improve. DVT prophylaxis: Lovenox
--- NOTE | 2020-09-05 12:30 | MHC.CDI.CONC ---
CDI Concurrent Query Service Date: 09/06/20 Documentation Clarification: Please clarify if you are treating a probable/suspected/likely or confirmed: Body Mass Index: Morbid obesity Please specify if known Provider Response: Morbid Obesity PLEASE DO NOT DELETE/MODIFY EXISTING CONTENT Additional information is needed in order to code to the highest accuracy and appropriate Severity of Illness (SOI). Please clarify the information noted below in your progress notes and discharge summary. Risk Factors/Clinical Indicators/Treatments Body Mass Index: 45.2 CDS: Sarah Gallegos [facility], CDIS Contact Number: [phone] Please Review the information above and exercise your independent professional judgment in responding to the query. If you concur, pleas document in the PROGRESS NOTES and DISCHARGE SUMMARY. If you do not agree with the query, please document in the query above. THIS QUERY IS PART OF THE PERMANENT MEDICAL RECORD
[2020-09-06] MEDS: cefTRIAXone sodium 1 GM in 0.9 % Sodium Chloride 50 ML IV (01:08)
[2020-09-06] MEDS: 0.9 % Sodium Chloride Flush 3 ML SYRINGE IVFLUSH ×4 (01:08→23:45)
[2020-09-06] MEDS: metroNIDAZOLE/NS 500 MG/100 ML PIGGYBACK 100 MG IV ×2 (01:45→08:52)
[2020-09-06] MEDS: Enoxaparin Sodium 40 MG/0.4 ML SYRINGE SUBCUT ×2 (01:51→23:43)
[2020-09-06] MEDS: diphenhydrAMINE HCL 50 MG/ML VIAL 25 MG IVPUSH (01:54)
[2020-09-06 03:53] VITALS: BP 145/95; PULSE 85; RESP 16; TEMP 36.8; O2SAT 98
[2020-09-06 08:00] VITALS: BP 132/86; PULSE 90; RESP 16; TEMP 36.2; O2SAT 95
[2020-09-06 12:00] VITALS: BP 120/87; PULSE 103; RESP 17; TEMP 36.4; O2SAT 95
[2020-09-06] MEDS: Acetaminophen 325 MG TABLET 650 MG PO (12:31)
--- NOTE | 2020-09-06 12:36 | P.PNIM_ITS ---
Subjective Subjective Date of Service: 09/06/20 Interval History: Patient admitted for left forearm cellulitis, patient feels redness and swelling is improving, denies any fever chills no other acute issues since admission no nausea vomiting tolerating diet. Review of Systems General no headache, no dizziness, no fever chills. CVS no chest, pain, no palpitation. Respiratory no cough, no shortness of breath. Gastrointestinal no nausea, no vomiting, no abdominal pain, 1 loose stool Physical Exam Vital Signs: Vital Signs: Last Vital Signs Temp 97.6 F 09/06/20 12:00 Pulse 103 H 09/06/20 12:00 Resp 17 09/06/20 12:00 BP 120/87 09/06/20 12:00 Pulse Ox 95 09/06/20 12:00 Body Mass Index 45.1 General patient resting comfortably in no acute distress. Neck is supple no JVD. CVS regular rate rhythm, Respiratory lungs clear to auscultation, no respiratory distress Gastrointestinal abdomen soft, nontender, bowel sounds audible, no no guarding , no rigidity. Extremities left forearm redness improved but extending above the elbow, with no tenderness, no swelling, mild warmth Neuro nonfocal patient moving all 4 extremity speech clear. Skin no rash Chest: Chest palpation & inspection: normal inspection of the chest and normal palpation of entire chest wall Cardio: Jugular venous distension: no JVD Skin: Other: Has erythema of the left forearm Extrem: Other: left posteroir forearm redness and warmth. negative for fluctulance General: Yes normal to inspection, Yes full ROM and Yes no pedal edema Objective Data Current Medications Generic Name Dose Route Start Last Admin Trade Name Eliud PRN Reason Stop Dose Admin Acetaminophen 650 mg 09/04/20 23:44 09/06/20 12:31 Acetaminophen 325 Mg Tablet PO 650 mg Q6H PRN Administration Pain, Mild (Pain Scale 1-3) Docusate Sodium 100 mg 09/04/20 23:44 Docusate Sodium 100 Mg Capsule PO DAILY PRN Constipation Enoxaparin Sodium 40 mg 09/04/20 23:45 09/06/20 01:51 Enoxaparin Sodium 40 Mg/0.4 Ml Syringe SUBCUT 40 mg Q24H ZACK Administration Ceftriaxone Sodium 1 gm/ 50 mls @ 100 mls/hr 09/04/20 23:45 09/06/20 01:55 Sodium Chloride IV Infused Q24H ZACK Infusion Metronidazole 500 mg in 100 mls @ 100 mls/hr 09/04/20 23:45 09/06/20 11:05 Flagyl IV Infused Q8H ZACK Infusion Melatonin 21 mg 09/05/20 21:00 09/06/20 01:53 Melatonin 3 Mg Tablet PO Not Given BEDTIME ZACK Ondansetron HCl 4 mg 09/04/20 23:44 Ondansetron Hcl 4 Mg/2 Ml Vial IVPUSH Q8H PRN Nausea and Vomiting Sodium Chloride 3 ml 09/05/20 00:00 09/06/20 08:53 0.9 % Sodium Chloride Flush 3 Ml Syringe IVFLUSH 3 [facility] Administration Labs CBC & Chem 7: 09/05/20 04:32 09/05/20 04:32 Microbiology Microbiology Results: Microbiology 09/04/20 20:49 Blood - Venous Blood Culture - Preliminary No growth after 24 hours. 09/04/20 20:43 Blood - Venous Blood Culture - Preliminary No growth after 24 hours. Assessment and Plan (1) Cellulitis: Status: Acute (2) Cat bite involving extremity: Status: Acute (3) Morbid obesity: Status: Acute Assessment and Plan: [place] [id number] Hospitalist - Progress NoteSigned Patient: Ninfa Shah#: [id number]: 1965Acct:[id number]/Sex: 55 / FADM Date: 09/04/20Loc:[id number]: Esperanza Barlow MD cc: ~ Subjective Subjective Date of Service: 09/05/20 Interval History: Patient admitted for left forearm cellulitis, patient feels redness and swelling is improving, denies any fever chills no other acute issues since admission no nausea vomiting tolerating diet. Review of Systems General no headache, no dizziness, no fever chills. CVS no chest, pain, no palpitation. Respiratory no cough, no shortness of breath. Gastrointestinal no nausea, no vomiting, no abdominal pain Physical Exam Vital Signs: Vital Signs: Last Vital Signs Temp 97.9 F 09/05/20 08:00 Pulse 68 09/05/20 08:00 Resp 20 09/05/20 08:00 BP 144/71 H 09/05/20 08:00 Pulse Ox 97 09/05/20 08:00 Body Mass Index 45.1 General no acute distress. Neck supple no JVD. CVS regular rate rhythm, Respiratory lungs clear to auscultation, no respiratory distress Gastrointestinal abdomen soft, nontender, bowel sounds audible Left upper Extremity redness extending towards elbow, no induration, site of teeth trisha dry and clean with no fluctuation no drainage,redness and swelling improving Neuro nonfocal patient moving all 4 extremity speech clear. Skin no rash Labs CBC & Chem 7: 09/05/20 04:32 document embedded image 09/05/20 04:32 document embedded image Assessment and Plan (1) Cellulitis: Status: Acute (2) Cat bite involving extremity: Status: Acute Assessment and Plan: 55-year-old who presents with cap by. Failed outpatient therapy # left forearm cellulitis due to cat bite Patient failed outpatient antibiotic treatment with Augmentin since noted to have worsening swelling and redness extending towards left elbow, no fevers no chills on IV Flagyl and ceftriaxone Patient noted to have clearing of swelling and redness of the forearm but now noted to have extension of redness above the elbow Blood cultures negative, normal WBC count, elevated ESR and CRP, normal White cell count, no fever continue IV Flagyl and ceftriaxone day 3 Blood cultures negative from September 03, repeat blood culture September 04 is negative Will consult infectious disease Dr. Tapia for adjustment and duration of antibiotic # morbid obesity weight reduction recommended to avoid complications of diabetes, hypertension and other comorbidities DVT prophylaxis: Lovenox
[2020-09-06] MEDS: levoFLOXacin 750 MG TABLET PO (14:50)
[2020-09-06] MEDS: Clindamycin Phosphate/D5W 600 MG/50 ML PIGGYBACK 100 MG IV ×2 (15:17→20:25)
--- NOTE | 2020-09-06 15:23 | MHC.CM.PN ---
PATIENT TELLS THIS [employer] THAT SHE HAS SECURED DR UBALDO GOMEZ HER PCP[facility]
[2020-09-06 16:00] VITALS: BP 119/59; PULSE 73; RESP 20; TEMP 36; O2SAT 97
[2020-09-06 19:15] VITALS: BP 137/79; PULSE 74; RESP 20; TEMP 36.6; O2SAT 97
--- NOTE | 2020-09-06 20:48 | P.CNID_ITS ---
History of Present Illness Data of Consult Service Date: 09/06/20 Requesting physician: Ramakrishna Ramires Primary Care Provider: Unknown Physician HPI Reason for consult: left arm redness,cat bite She was well until unprovoked bite by one and a [age] year old pet cat Patient was sitting and cat came up and bit her strongly in snuff box area of hand This happened 5 days ago. The cat has prior aggressive behaviour unprovoked and has bit before Cat has no rabies shot but has stayed inside Patient does not remember when got tetanus shot She received 3 tablets Augmentin with no improvement She has no fever or chills She has redness extending from hand up to humerus area now She was started on Ceftriaxone and Flagyl and redness is extending now from hand up arm. [facility] Past Medical History Medical History No known health problems No known health problems Family History Family history: reviewed and not pertinent Social History Social History Household Members: Family and Children Housing: Apartment Do you presently have visiting nurse or other home services: No Smoking Status: Never smoker Second Hand Smoke Exposure: No Use of substances other than those prescribed or required for medical reasons: Yes Substance Use Type: Marijuana Substance Use Frequency: Weekly Last Used Substance: Days (ago) Currently Displaying Signs/Symptoms of Drug Intoxication Withdrawal: No Any prior treatment program specific to substance use: No Have you been hit, kicked, punched, or otherwise hurt by someone within the past year? If so, by whom?: No Do you feel safe in your current relationship?: No Is there a partner from a previous relationship who is making you feel unsafe now?: No Are you made to feel afraid or neglected: No Advance Directives: No Advance Directives Information Provided: No Advance Directives on File: No Do you have thoughts of harming others: None Do you have a plan to hurt others: No Plan Recently lost weight without trying: No service: No Current occupational status: employed Meds Allergies Allergy/AdvReac Type Severity Reaction Status Date / Time No Known Allergies Allergy Unknown Verified 09/02/20 21:19 Home Medications Medication Instructions Recorded Confirmed Type Vitamin C PO DAILY 09/05/20 History melatonin PO BEDTIME 09/05/20 History Physical Exam Vital Signs: Vital Signs: Last Vital Signs Temp 97.8 F 09/06/20 19:15 Pulse 74 09/06/20 19:15 Resp 20 09/06/20 19:15 BP 137/79 09/06/20 19:15 Pulse Ox 97 09/06/20 19:15 Body Mass Index 45.1 Const: General: cooperative HENMT: Head: Yes normal to inspection Mouth: Normal oral and palatal mucosa present Eyes: General: appearance normal, both eyes and all related structures Resp: Effort & Inspection: normal respiratory effort Cardio: Rate: regular rate Rhythm: regular rhythm GI: Palpation (GI): Soft to palpation and nontender Skin: General skin exam: no rashes or lesions noted Extrem: Other: left arm redness upper Assessment and Plan (1) Cellulitis: Qualifiers: Laterality: left Site of cellulitis: extremity Site of cellulitis of extremity: upper extremity Qualified Code(s): L03.114 - Cellulitis of left upper limb Status: Acute (2) Cat bite involving extremity: Problem details: With cat bite there is concern over Pasteurella multocida Also concern over anerobes and MRSA Status: Acute Clindamycin and Levaquin Tetanus shot Elevate arm Rehome cat Results Labs CBC & Chem 7: 09/05/20 04:32 09/05/20 04:32 Microbiology Microbiology Results: Microbiology 09/04/20 20:49 Blood - Venous Blood Culture - Preliminary No growth after 24 hours. 09/04/20 20:43 Blood - Venous Blood Culture - Preliminary No growth after 24 hours.
[2020-09-06] MEDS: Melatonin 3 MG TABLET 21 MG PO (22:26)
[2020-09-06 23:42] VITALS: BP 155/65; PULSE 68; RESP 20; TEMP 37.2; O2SAT 98
[2020-09-07 03:31] VITALS: BP 143/58; PULSE 82; RESP 18; TEMP 36.4; O2SAT 98
[2020-09-07] MEDS: Clindamycin Phosphate/D5W 600 MG/50 ML PIGGYBACK 100 MG IV (05:06)
[2020-09-07] MEDS: Acetaminophen 325 MG TABLET 650 MG PO (07:42)
[2020-09-07 07:52] VITALS: BP 162/53; PULSE 69; RESP 18; TEMP 36.2; O2SAT 98
--- NOTE | 2020-09-07 11:07 | MHC.CM.PN ---
PATIENT IS DISCHARGED HOME - SELF CARE. CAR IS IN LOT. RN AWARE OF PLAN.
--- NOTE | 2020-09-07 11:47 | P.DS_ITS ---
DS: Providers Provider Date of Service: 09/07/20 Date of admission: 09/04/20 23:44 Primary care physician: Unknown Physician Consults: 09/06/20 12:35 Consult to Infectious Diseases Routine Consulting Provider: Elif Tapia Reason for consultation: left forearm cellulitis with cat bite Has provider been notified: No DS: Diagnosis Discharge Diagnosis (1) Cellulitis: Status: Acute (2) Cat bite involving extremity: Status: Acute Problem details: With cat bite there is concern over Pasteurella multocida Also concern over anerobes and MRSA DS: Medications Discharge Medications Home Medications: Home Medications Medication Instructions Recorded Confirmed Vitamin C PO DAILY 09/05/20 melatonin PO BEDTIME 09/05/20 Previous Rx's Medication Instructions Recorded clindamycin HCl 300 mg PO TID #20 cap 09/07/20 levofloxacin 750 mg PO Q24H #5 tab 09/07/20 DS: Summary Hospital Course Hospital Course: 55-year-old female who presents to the hospital initially on Wednesday with complaints of cat bite and right arm pain. Patient reports that she got bit by her cat on Wednesday, and her right arm started swelling and has significant 9/10 pain which prompted her to come to the hospital on Wednesday. She was given an IV antibiotic on presentation, and discharged on Augmentin. Patient reports that she returns today with worsening of the redness of her arm. her pain has significantly improved but the redness has extended now to include all of her forearm up to the elbow. She is not aware of any lymphadenopathy. She has no fever or chills but reports high temperature to be 99.5. Patient denies any nausea vomiting, no abdominal pain, no chest pain, no diarrhea constipation, no lower extremity edema, no urinary symptoms. No headache or shortness of breath. No palpitations. On arrival to the ED hemodynamically stable with no significant abnormal vitals Labs are significant for WBC count of 9.0, hemoglobin of 11.3, ESR today's 50, sodium of 141, potassium 3.9, CRP of 18.1 Hospital course Left forearm cellulitis due to cat bite. Patient failed outpatient antibiotic treatment with Augmentin therefore placed on IV ceftriaxone and Flagyl however patient did not respond noted to have extension of redness and swelling towards left arm therefore patient was seen in consultation by Dr. Loly Tapia and was placed on Levaquin and IV clindamycin patient responded well to treatment blood cultures came back negative patient remains afebrile therefore being discharged home on 5 days of by mouth Levaquin and clindamycin. Morbid obesity patient has been strongly advised to follow low-calorie diet. Time Spent with Patient Time attestation: Total time spent providing and/or coordinating discharge services: Discharge coordination time: Greater than 30 minutes Physical Exam Vital Signs: Vital Signs: Last Vital Signs Temp 97.1 F 09/07/20 07:52 Pulse 69 09/07/20 07:52 Resp 18 09/07/20 07:52 BP 162/53 H 09/07/20 07:52 Pulse Ox 98 09/07/20 07:52 Body Mass Index 45.1 General patient resting comfortably in no acute distress. Neck is supple no JVD. CVS regular rate rhythm, Respiratory lungs clear to auscultation, no respiratory distress Gastrointestinal abdomen soft, nontender, bowel sounds audible. Left upper extremity redness swelling has resolved Neuro nonfocal Skin no rash DS: Data Data Completed and Pending Labs on day of discharge: Laboratory Tests 09/04/20 09/04/20 09/04/20 20:43 20:43 20:43 WBC 10.3 RBC 4.39 Hgb 12.3 Hct 37.3 MCV 85.0 MCH 28.0 MCHC 33.0 RDW 13.6 Plt Count 265 MPV 10.0 Immature Gran % (Auto) 0.3 Neut % (Auto) 77.4 H Lymph % (Auto) 13.2 L [place] % (Auto) 8.2 Eos % (Auto) 0.7 Baso % (Auto) 0.2 Lymph # (Auto) 1.4 [place] # (Auto) 0.8 Eos # (Auto) 0.1 Baso # (Auto) 0.0 Abs Immat Gran (auto) 0.03 Absolute Neuts (auto) 8.0 Absolute Nucleated RBC 0.000 Nucleated RBC % (auto) 0.0 ESR PT INR APTT Sodium 140 Potassium 3.9 Chloride 106 Carbon Dioxide 24 Anion Gap 14 BUN 12 Creatinine 0.63 Estim Creat Clear Calc 139.1 Estimated GFR > 60 Random Glucose 107 Lactic Acid 0.9 Calcium 8.5 Total Bilirubin 0.3 AST 14 ALT 20 Alkaline Phosphatase 75 C-Reactive Protein 18.12 H Total Protein 6.6 Albumin 3.7 COVID-19 ([facility]) COVID-19 Clin Com 09/04/20 09/04/20 09/05/20 20:43 20:43 00:32 WBC RBC Hgb Hct MCV MCH MCHC RDW Plt Count MPV Immature Gran % (Auto) Neut % (Auto) Lymph % (Auto) [place] % (Auto) Eos % (Auto) Baso % (Auto) Lymph # (Auto) [place] # (Auto) Eos # (Auto) Baso # (Auto) Abs Immat Gran (auto) Absolute Neuts (auto) Absolute Nucleated RBC Nucleated RBC % (auto) ESR 50 H PT 14.2 H INR 1.2 H APTT 34.4 Sodium Potassium Chloride Carbon Dioxide Anion Gap BUN Creatinine Estim Creat Clear Calc Estimated GFR Random Glucose Lactic Acid Calcium Total Bilirubin AST ALT Alkaline Phosphatase C-Reactive Protein Total Protein Albumin COVID-19 ([facility]) Negative COVID-19 Clin Com See Note 09/05/20 09/05/20 04:32 04:32 WBC 9.0 RBC 4.06 L Hgb 11.3 L Hct 34.6 L MCV 85.2 MCH 27.8 MCHC 32.7 RDW 13.5 Plt Count 252 MPV 10.0 Immature Gran % (Auto) 0.3 Neut % (Auto) 68.7 Lymph % (Auto) 21.1 [place] % (Auto) 8.8 Eos % (Auto) 0.8 Baso % (Auto) 0.3 Lymph # (Auto) 1.9 [place] # (Auto) 0.8 Eos # (Auto) 0.1 Baso # (Auto) 0.0 Abs Immat Gran (auto) 0.03 Absolute Neuts (auto) 6.2 Absolute Nucleated RBC 0.000 Nucleated RBC % (auto) 0.0 ESR PT INR APTT Sodium 141 Potassium 3.9 Chloride 106 Carbon Dioxide 25 Anion Gap 14 BUN 9 Creatinine 0.65 Estim Creat Clear Calc 134.9 Estimated GFR > 60 Random Glucose 94 Lactic Acid Calcium 8.4 Total Bilirubin AST ALT Alkaline Phosphatase C-Reactive Protein Total Protein Albumin COVID-19 ([facility]) COVID-19 Clin Com Preliminary micro results at discharge 09/04/20 20:49 Blood Culture - Preliminary Blood - Venous No growth after 48 hours. 09/04/20 20:43 Blood Culture - Preliminary Blood - Venous No growth after 48 hours. Discharge Plan Discharge Patient Disposition: Home, Self-Care Referrals: Physician,Unknown [Primary Care Provider] - Discharge Medications: New clindamycin HCl 300 mg capsule 300 mg PO TID Qty: 20 RF: 0 levofloxacin 750 mg Tablet 750 mg PO Q24H Qty: 5 RF: 0 Continued melatonin PO BEDTIME RF: 0 Vitamin C PO DAILY RF: 0 Discharge Orders: Discharge Order (Routine); Ordered 09/07/20 Ordered By: Esperanza Barlow Diet: advance to usual diet Activity on Discharge: As tolerated Stand Alone Forms: Patient Portal Discharge page Visit Report Forms: Patient Portal Discharge page Care Plan Goals: Return to check with any worsening redness or swelling Health Concerns: Cellulitis Plan of Treatment: Outpatient follow-up with PCP
== END 2020-09-07 13:21 | disposition home or self-care (01) | DRG 603 ==
LOC: HO.ED 09-05 00:24 → HO.S3 09-05 01:07
PROVIDERS: Physician Assistant; Admitting Provider Internal Medicine; Emergency Provider Internal Medicine; PCP Internal Medicine; Visit Provider Hospitalist
DX: L03.114 Cellulitis of left upper limb (principal); Z68.42 Body mass index [BMI] 45.0-49.9, adult; Z23 Encounter for immunization; E66.01 Morbid (severe) obesity due to excess calories; Z20.822 Contact with and (suspected) exposure to COVID-19; Z79.899 Other long term (current) drug therapy
CPT/HCPCS: 36415; 73090; 80048; 80053; 83605; 85025; 85610; 85652; 85730; 86140; 87040; 87635; 90715; 96361; 96374; 99285; J0696; J1200; J1650; J2543

== ENCOUNTER 2021-02-13 01:58 | Emergency (ER) | payer MEDICAID, SELFPAY ==
--- NOTE | ~2021-02-13 | XR_ITS ---
EXAMINATION: XR CHEST CLINICAL INFORMATION: Chest pain. COMPARISON: 01/11/2007 TECHNIQUE: AP portable upright view of the chest FINDINGS: Leads overlie the chest. Lungs are clear. No consolidation, pneumothorax, or pleural effusion. Cardiac and mediastinal contours are normal. Pulmonary vasculature is unremarkable. Osseous structures are unremarkable. XR/XR chest 1V IMPRESSION: No acute cardiopulmonary findings
[2021-02-13 02:04] VITALS: BP 149/84; PULSE 72; RESP 11; TEMP 36.8; O2SAT 97; BMI 40.3
--- NOTE | 2021-02-13 02:08 | ECG_ITS ---
Test Reason : CHEST PRESSURE Blood Pressure : / mmHG Vent. Rate : 070 BPM Atrial Rate : 070 BPM P-R Int : 152 ms QRS Dur : 084 ms QT Int : 396 ms P-R-T Axes : 044 014 066 degrees QTc Int : 427 ms Normal sinus rhythm with sinus arrhythmia Low voltage QRS Nonspecific T wave abnormality Abnormal ECG When compared with ECG of 11-JAN-2007 00:43, No significant change was found Referred By: Maria R Saavedra Electronically Signed By:KRISTOPHER MCCLELLAN MD
[2021-02-13 02:10] VITALS: BP 150/70; PULSE 88; O2SAT 98
[2021-02-13] MEDS: Lidocaine HCl Viscous 2 % 15 ML SOLUTION 10 ML MUCOUS MEM (02:25)
[2021-02-13] MEDS: Magnesium Hydrox/Alum Hydrox 30 ML ORAL.SUSP PO (02:25)
[2021-02-13 02:50] LABS: MANUAL DIFF FLAG NO
[2021-02-13 02:51] LABS: Basophils Percent Auto 0.5 % (0-2); Eosinophils Absolute Auto 0.1 X10*3/uL (0.0-0.4); Eosinophils Percent Auto 1.4 % (0-4); Hematocrit 38.5 % (37-47); Hemoglobin 12.9 g/dl (12.0-16.0); Imm Gran Abs Auto 0.01 X10*3/uL (0.00-0.03); Imm Gran Pct Auto 0.2 % (0.0-0.4); Lymphocytes Absolute Auto 2.3 X10*3/uL (1.2-4.9); Lymphocytes Percent Auto 36.1 % (20-40); Mean Corpuscular HGB Conc 33.5 g/dl (31.0-35.0); Mean Corpuscular Hemoglobin 28.2 pg (27.0-33.0); Mean Corpuscular Volume 84.1 fL (80-98); Mean Platelet Volume 9.6 fL (9.4-12.3); Monocytes Absolute Auto 0.7 X10*3/uL (0.1-1.2); Monocytes Percent Auto 10.7 % (2-11); Neutrophils Absolute Auto 3.2 X10*3/uL (2.0-8.3); Neutrophils Percent Auto 51.1 % (45-73); Platelet Count 291 X10*3/uL (160-400); Red Blood Count 4.58 X10*6/uL (4.20-5.50); Red Cell Distribution Width 13.1 % (11.0-16.0); White Blood Count 6.3 X10*3/uL (4.8-10.8)
[2021-02-13 02:52] LABS: Glucose Urine UA NEG (NEG); Leukocyte Esterase Urine NEG (NEG); Nitrite Urine NEG (NEG); Urine Blood NEG (NEG); Urine Ketones NEG (NEG); Urine Protein NEG (NEG-TRACE)
[2021-02-13 02:54] LABS: Appearance Urine CLEAR; Color Urine YELLOW
--- NOTE | 2021-02-13 03:02 | ED_ITS ---
HPI - Chest Pain General Chief Complaint: Chest Pain Stated Complaint: CHEST DISCOMFORT X'S 30 MIN,TOOK BABY ASA @ HOME Time Seen by Provider: 02/13/21 02:08 Source: patient Mode of arrival: EMS History of Present Illness HPI narrative: 55F without significant past medical history brought in by EMS for burning sensation going up into her chest and she states she suffers from anxiety and began to feel more and more anxious which was causing chest tightness without associated nausea, diaphoresis, dizziness, and denies radiation into neck/arm/back. Otherwise, she denies any recent travel, shortness of breath, GI or symptoms. Related Data Home Medications Medication Instructions Recorded Confirmed Vitamin C PO DAILY 09/05/20 melatonin PO BEDTIME 09/05/20 Previous Rx's Medication Instructions Recorded clindamycin HCl 300 mg PO TID #20 cap 09/07/20 levofloxacin 750 mg PO Q24H #5 tab 09/07/20 omeprazole 40 mg PO DAILY 30 Days #30 cap 02/13/21 Allergies Allergy/AdvReac Type Severity Reaction Status Date / Time No Known Allergies Allergy Unknown Verified 09/02/20 21:19 Review of Systems Review of Systems: Pertinent positive and negatives as stated in HPI 10 point review of systems is otherwise negative. PMFSH Past Medical History Source: nursing notes reviewed Medical History No known health problems No known health problems Social History Social History Household Members: Family and Children Housing: Apartment Do you presently have visiting nurse or other home services: No Alcohol intake: never Patient Tobacco Use Status: Never used Tobacco Second Hand Smoke Exposure: No Use of substances other than those prescribed or required for medical reasons: Yes Substance Use Type: Marijuana Substance Use Frequency: Occasionally Advance Directives: No Advance Directives Information Provided: No Patient : No service: No Current occupational status: employed Physical Exam Vital Signs: Vital Signs: Last Vital Signs Temp 98.3 F 02/13/21 02:04 Pulse 72 02/13/21 02:04 Resp 11 L 02/13/21 02:04 BP 149/84 H 02/13/21 02:04 Pulse Ox 97 02/13/21 02:04 Body Mass Index 40.3 VITAL SIGNS: Reviewed. GENERAL: Well developed, well nourished, in no acute distress. HEAD: Normocephalic/atraumatic EYES: PERRLA, EOMI OROPHARYNX: no oral lesions noted, posterior pharynx clear NECK: Supple, no adenopathy LUNGS: Normal breath sounds. No adventitious sounds or accessory muscle use. SpO2<97> CARDIOVASCULAR: Regular rate and rhythm without noted murmurs, no JVD or lower extremity edema. ABDOMEN: Soft, non-tender, non-distended with bowel sounds. SKIN: Inspection of the skin reveals no rashes NEUROLOGIC: Alert and oriented x 4. Strength and sensation to light touch were grossly intact x 4. Course Course Course Narrative: This is a 55-year-old female with history and clinical presentation consistent with severe GERD but will rule out cardiopulmonary etiologies although considerably less likely. Patient also treated with GI cocktail and re-evaluated. On review of all investigations there are no acute findings to suggest pneumonia or cardiac ischemia and on re-evaluation patient has had complete resolution of her symptoms. She was informed of all results and discharged home in stable condition. MDM - Chest Pain Lab Data Result diagrams: 02/13/21 02:45 02/13/21 02:45 Labs: Lab Results 02/13/21 02/13/21 02/13/21 Range/Units 02:31 02:45 02:45 WBC 6.3 (4.8-10.8) X10*3/uL RBC 4.58 (4.20-5.50) X10*6/uL Hgb 12.9 (12.0-16.0) g/dl Hct 38.5 (37-47) % MCV 84.1 (80-98) fL MCH 28.2 (27.0-33.0) pg MCHC 33.5 (31.0-35.0) g/dl RDW 13.1 (11.0-16.0) % Plt Count 291 (160-400) X10*3/uL MPV 9.6 (9.4-12.3) fL Immature Gran % (Auto) 0.2 (0.0-0.4) % Neut % (Auto) 51.1 (45-73) % Lymph % (Auto) 36.1 (20-40) % [place] % (Auto) 10.7 (2-11) % Eos % (Auto) 1.4 (0-4) % Baso % (Auto) 0.5 (0-2) % Lymph # (Auto) 2.3 (1.2-4.9) X10*3/uL [place] # (Auto) 0.7 (0.1-1.2) X10*3/uL Eos # (Auto) 0.1 (0.0-0.4) X10*3/uL Baso # (Auto) 0.0 (0.0-0.2) X10*3/uL Abs Immat Gran (auto) 0.01 (0.00-0.03) X10*3/uL Absolute Neuts (auto) 3.2 (2.0-8.3) X10*3/uL Absolute Nucleated RBC 0.000 (0.0-0.012) X10*3/uL Nucleated RBC % (auto) 0.0 (0.0-0.2) /100WBC Sodium 139 (135-145) mmol/L Potassium 4.2 (3.3-5.1) mmol/L Chloride 107 (96-108) mmol/L Carbon Dioxide 26 (22-29) mmol/L Anion Gap 10 L (12-20) BUN 16 D (9-16) mg/dL Creatinine 0.74 (0.5-1.4) mg/dL Estim Creat Clear Calc 111.0 Estimated GFR > 60 Random Glucose 113 (60-115) mg/dL Calcium 9.1 D (8.4-10.2) mg/dL Total Bilirubin 0.2 (0.0-1.0) mg/dL AST 16 (5-31) U/L ALT 17 (0-31) U/L Alkaline Phosphatase 76 (39-117) U/L Troponin I High Sens (<3.5-17.0) ng/L Total Protein 6.5 (6.5-8.0) g/dL Albumin 3.7 (3.5-5.0) g/dL Urine Color YELLOW Urine Appearance CLEAR Urine pH 6.0 (5.0-8.0) Ur Specific [place] 1.020 (1.005-1.025) Urine Protein NEG (NEG-TRACE) MG/DL Urine Glucose (UA) NEG (NEG) MG/DL Urine Ketones NEG (NEG) MG/DL Urine Blood NEG (NEG) Urine Nitrite NEG (NEG) Ur Leukocyte Esterase NEG (NEG) 02/13/21 Range/Units 02:45 WBC (4.8-10.8) X10*3/uL RBC (4.20-5.50) X10*6/uL Hgb (12.0-16.0) g/dl Hct (37-47) % MCV (80-98) fL MCH (27.0-33.0) pg MCHC (31.0-35.0) g/dl RDW (11.0-16.0) % Plt Count (160-400) X10*3/uL MPV (9.4-12.3) fL Immature Gran % (Auto) (0.0-0.4) % Neut % (Auto) (45-73) % Lymph % (Auto) (20-40) % [place] % (Auto) (2-11) % Eos % (Auto) (0-4) % Baso % (Auto) (0-2) % Lymph # (Auto) (1.2-4.9) X10*3/uL [place] # (Auto) (0.1-1.2) X10*3/uL Eos # (Auto) (0.0-0.4) X10*3/uL Baso # (Auto) (0.0-0.2) X10*3/uL Abs Immat Gran (auto) (0.00-0.03) X10*3/uL Absolute Neuts (auto) (2.0-8.3) X10*3/uL Absolute Nucleated RBC (0.0-0.012) X10*3/uL Nucleated RBC % (auto) (0.0-0.2) /100WBC Sodium (135-145) mmol/L Potassium (3.3-5.1) mmol/L Chloride (96-108) mmol/L Carbon Dioxide (22-29) mmol/L Anion Gap (12-20) BUN (9-16) mg/dL Creatinine (0.5-1.4) mg/dL Estim Creat Clear Calc Estimated GFR Random Glucose (60-115) mg/dL Calcium (8.4-10.2) mg/dL Total Bilirubin (0.0-1.0) mg/dL AST (5-31) U/L ALT (0-31) U/L Alkaline Phosphatase (39-117) U/L Troponin I High Sens < 3.5 (<3.5-17.0) ng/L Total Protein (6.5-8.0) g/dL Albumin (3.5-5.0) g/dL Urine Color Urine Appearance Urine pH (5.0-8.0) Ur Specific [place] (1.005-1.025) Urine Protein (NEG-TRACE) MG/DL Urine Glucose (UA) (NEG) MG/DL Urine Ketones (NEG) MG/DL Urine Blood (NEG) Urine Nitrite (NEG) Ur Leukocyte Esterase (NEG) ECG Data ECG #1: Attestation: I personally reviewed and interpreted this ECG as follows: Prior ECG tracings: available for review ( 01/11/2007 no acute changes on comparison) Interpretation: normal sinus rhythm, HR-70, no evidence of acute ischemia, NV /QRS /QTC are within normal limits. Discharge Plan Discharge Clinical Impression: Atypical chest pain, GERD (gastroesophageal reflux disease) Patient Disposition: Home, Self-Care Instructions: Diet for Stomach Ulcers and Gastritis (ED), Gastroesophageal Reflux Disease (ED) Additional Instructions: 1. Resume all home medications as prescribed. 2. Please follow-up with your primary care provider in the next 2-3 days for re-evaluation and further outpatient management. Return to the ER for acute worsening of symptoms. Prescriptions: New omeprazole 40 mg capsule,delayed release(DR/EC) 40 mg PO DAILY 30 Days Qty: 30 RF: 0 No Action melatonin PO BEDTIME RF: 0 Vitamin C PO DAILY RF: 0 clindamycin HCl 300 mg capsule 300 mg PO TID Qty: 20 RF: 0 levofloxacin 750 mg Tablet 750 mg PO Q24H Qty: 5 RF: 0 Referrals: Physician,Unknown [Primary Care Provider] - 2 days
[2021-02-13 03:14] LABS: Alanine Aminotransferase 17 U/L (0-31); Albumin Level 3.7 g/dL (3.5-5.0); Alkaline Phosphatase 76 U/L (39-117); Anion Gap 10 (12-20); Aspartate Amino Transferase 16 U/L (5-31); Bilirubin Total 0.2 mg/dL (0.0-1.0); Blood Urea Nitrogen 16 mg/dL (9-16); Calcium 9.1 mg/dL (8.4-10.2); Carbon Dioxide 26 mmol/L (22-29); Chloride 107 mmol/L (96-108); Estimated Glomerular Filt Rate > 60; Glucose Random 113 mg/dL (60-115); Potassium 4.2 mmol/L (3.3-5.1); Sodium 139 mmol/L (135-145); Total Protein 6.5 g/dL (6.5-8.0)
[2021-02-13 03:16] LABS: Troponin-I High Sensitivity < 3.5 ng/L (<3.5-17.0)
[2021-02-13 04:00] VITALS: BP 149/84; PULSE 72; RESP 11; TEMP 36.8; O2SAT 97
== END 2021-02-13 05:29 | disposition home or self-care (01) ==
PROVIDERS: Emergency Provider Student in an Organized Health Care Education/Training Program
DX: R07.89 Other chest pain (principal); K21.9 Gastro-esophageal reflux disease without esophagitis
CPT/HCPCS: 36415; 71045; 80053; 81003; 84484; 85025; 93005; 99283; 99285

== ENCOUNTER 2021-05-01 17:49 | Emergency (ER) | payer OTHER, SELFPAY ==
[2021-05-01 17:58] VITALS: BP 172/83; PULSE 65; RESP 18; TEMP 36.6; O2SAT 100; BMI 34.9
--- NOTE | 2021-05-01 18:04 | ECG_ITS ---
Test Reason : CHEST PAIN Blood Pressure : / mmHG Vent. Rate : 060 BPM Atrial Rate : 060 BPM P-R Int : 154 ms QRS Dur : 088 ms QT Int : 398 ms P-R-T Axes : 071 023 054 degrees QTc Int : 398 ms Normal sinus rhythm Low voltage QRS Nonspecific T wave abnormality Abnormal ECG When compared with ECG of 13-FEB-2021 02:32, No significant change was found Referred By: Generic ED Physician Electronically Signed By:ANGELICA MEJIAS
[2021-05-01 23:14] LABS: Influenza A PCR NEGATIVE (Negative); Influenza B PCR NEGATIVE (Negative); Resp Syncy Virus RNA Qual PCR NEGATIVE (Negative); SARS COV2 PCR INHOUSE NEGATIVE (Negative)
== END 2021-05-01 21:50 | disposition left against medical advice (07) ==
PROVIDERS: Emergency Provider Emergency Medicine
DX: R07.9 Chest pain, unspecified (principal); Z20.822 Contact with and (suspected) exposure to COVID-19
CPT/HCPCS: 0241U; 36415; 93005; 99282; 99283

== ENCOUNTER 2024-06-09 09:26 | Emergency (ER) | payer OTHER, SELFPAY ==
--- NOTE | 2024-06-09 | ECG_ITS ---
Test Reason : CHEST PAIN Blood Pressure : / mmHG Vent. Rate : 071 BPM Atrial Rate : 071 BPM P-R Int : 154 ms QRS Dur : 088 ms QT Int : 390 ms P-R-T Axes : 052 -01 027 degrees QTc Int : 423 ms Normal sinus rhythm Low voltage QRS Cannot rule out Anterior infarct , age undetermined Abnormal ECG When compared with ECG of 01-MAY-2021 18:16, No significant change was found Referred By: Generic ED Physician Electronically Signed By:Fabian Bernal
[2024-06-09 09:31] VITALS: BP 138/88; PULSE 82; O2SAT 99; BMI 37.8
[2024-06-09 09:39] VITALS: BP 141/58; PULSE 71; RESP 16; TEMP 36.8; O2SAT 100
--- NOTE | 2024-06-09 09:51 | PC.NURSE ---
a&ox4. vss and up to date. nsr on the assistant accounting manager. pt presents to the ED biba from work w/ sudden onset substernal nonradiating tightening chest discomfort/dizziness x 10 minutes. 324mg ASA self administered by patient. pt denies SOB/nausea/vomiting. pain has subsided since EMS arrival. upon ED arrival - pt reports chest pain has completely subsided. no sob/wob noted. respirations even/unlabored. 20gIV placed in the left AC via EMS - patent/intact. ekg performed by [facility] currently bedside obtaining labs. plan of care ongoing. call magana placed within reach.
[2024-06-09 10:07] LABS: MANUAL DIFF FLAG NO
[2024-06-09 10:08] LABS: Basophils Absolute Auto 0.1 X10*3/uL (0.0-0.2); Basophils Percent Auto 1.2 % (0-2); Eosinophils Absolute Auto 0.1 X10*3/uL (0.0-0.4); Eosinophils Percent Auto 2.1 % (0-4); Hematocrit 33.9 % (37.0-47.0); Hemoglobin 11.9 g/dl (12.0-16.0); Imm Gran Abs Auto 0.01 X10*3/uL (0.00-0.03); Imm Gran Pct Auto 0.2 % (0.0-0.4); Lymphocytes Absolute Auto 1.4 X10*3/uL (1.2-4.9); Lymphocytes Percent Auto 33.4 % (20-40); Mean Corpuscular HGB Conc 35.1 g/dl (31.0-35.0); Mean Corpuscular Hemoglobin 29.2 pg (27.0-33.0); Mean Corpuscular Volume 83.1 fL (80.0-98.0); Mean Platelet Volume 9.4 fL (9.4-12.3); Monocytes Absolute Auto 0.4 X10*3/uL (0.1-1.2); Monocytes Percent Auto 9.6 % (2-11); Neutrophils Absolute Auto 2.3 x10*3/uL (2.0-8.3); Neutrophils Percent Auto 53.5 % (45-73); Platelet Count 237 X10*3/uL (160-400); Red Blood Count 4.08 X10*6/uL (4.20-5.50); White Blood Count 4.3 X10*3/uL (4.8-10.8)
[2024-06-09 10:26] LABS: Alanine Aminotransferase 18 U/L (0-31); Albumin Level 3.6 g/dL (3.5-5.0); Alkaline Phosphatase 83 U/L (39-117); Anion Gap 10 (12-20); Aspartate Amino Transferase 20 U/L (5-31); Bilirubin Total 0.3 mg/dL (0.0-1.0); Blood Urea Nitrogen 14 mg/dL (9-16); Calcium 9.5 mg/dL (8.4-10.2); Carbon Dioxide 28 mmol/L (22-29); Chloride 106 mmol/L (96-108); Creatinine Clr Calc Pharmacy 104.8; Estimated Glomerular Filt Rate > 60; Glucose Random 104 mg/dL (60-115); Potassium 3.9 mmol/L (3.3-5.1); Sodium 140 mmol/L (135-145); Total Protein 6.5 g/dL (6.5-8.0)
[2024-06-09 10:36] LABS: Troponin-I High Sensitivity < 2.7 ng/L (<3.5-17.0)
--- NOTE | 2024-06-09 11:03 | ED_ITS ---
HPI - Chest Pain General Chief Complaint: Chest Pain Stated Complaint: dizzy, chest discomfort Time Seen by Provider: 06/09/24 11:03 Source: patient Mode of arrival: ambulatory Limitations: no limitations History of Present Illness ED Provider: Thomas Gregorio PA-C HPI narrative: 58 yo female presents to the ER via EMS for evaluation of SOB and chest tightness that occurred today when she was at work. 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 She states then she had a diffuse wave of heat come over her body and she developed shortness of breath and chest tightness. She states the symptoms continued to worsen, she became more nervous and anxious. She became dizzy as her breathing got heavier. She states she has had a similar episode years ago that ended up being anxiety. She has had a Holter monitor in the past. She reports taking 324 mg of aspirin and sitting down. She states after 10 minutes her symptoms completely resolved. On EMS arrival patient reports resolution of her symptoms. She came to the ER for evaluation. She denies any cardiac history. She is a nonsmoker. MD complaint: chest pain and other (Anxiety and shortness of breath) Onset (ago): minute(s) Timing of current episode: episodic Prior episodes: Yes Onset: during rest Pain location: substernal Pain radiation: none Severity: moderate Quality: tightness Relieving factors: rest Exacerbating factors: stress Associated symptoms: dyspnea, sense of impending doom and palpitations Treatment prior to arrival: aspirin Risk Factors Coronary artery disease risk factors: none Thoracic aortic dissection risk factors: none Related Data Home Medications ?Medication ?Instructions ?Recorded ?Confirmed Vitamin C PO DAILY 09/05/20 melatonin PO BEDTIME insomnia 09/05/20 Previous Rx's ?Medication ?Instructions ?Recorded clindamycin HCl 300 mg capsule 300 mg PO TID #20 caps 09/07/20 levofloxacin 750 mg tablet 750 mg PO Q24H #5 tabs 09/07/20 omeprazole 40 mg capsule,delayed 40 mg PO DAILY 30 days #30 caps 02/13/21 release Allergies Allergy/AdvReac Type Severity Reaction Status Date / Time No Known Allergies Allergy Unknown Verified 06/09/24 09:35 Review of Systems 2 Review of Systems: Yes all other systems are reviewed and are negative PMFSH Past Medical History Medical History No known health problems No known health problems Social History Social History Household Members: Family and Children Housing: Apartment Do you presently have visiting nurse or other home services: No Alcohol intake: never Patient Tobacco Use Status: Never used Tobacco Smoked in Last 30 Days: Yes Second Hand Smoke Exposure: No Use of substances other than those prescribed or required for medical reasons: Yes Substance Use Type: Marijuana Advance Directives: No Advance Directives Information Provided: No Do you have a plan to hurt others: No Plan Patient : No service: No Current occupational status: employed Physical Exam 2 Vital Signs: Vital Signs: Last Vital Signs Temp 98.6 F 06/09/24 11:37 Pulse 61 06/09/24 11:37 Resp 14 06/09/24 11:37 BP 113/57 L 06/09/24 11:37 Pulse Ox 97 06/09/24 11:37 O2 Del Method Room Air 06/09/24 11:37 BMI result Body Mass Index 37.8 Appearance: Alert. Oriented X3. No acute distress. Head: normocephalic, atraumatic. Eyes: Pupils equal, round and reactive to light. ENT: Pharynx normal. No tonsillar swelling or exudate. Neck: Normal inspection. Neck supple. CVS: Normal heart rate and rhythm. Pulses normal. Respiratory: No respiratory distress. Breath sounds normal. Nontender chest wall Abdomen: Soft and nontender. +BS x4 Skin: Skin warm and dry. Normal skin color. Normal skin turgor. No rashes. Extremities: No lower extremity edema. No joint swelling. Negative Homans sign Neuro/psych: Oriented X 3. No motor deficit. No sensory deficit. CN II-XII intact. Normal speech and cognition. Medical Decision Making Medical Decision Making MDM Narrative: 58-year-old female presents to the ER for evaluation of an episode of shortness of breath, chest tightness, hyperventilation, palpitations. Resolved with rest and aspirin. Patient remains pain-free. She rides to the ER hemodynamically stable and feeling much better. She feels like the episode was exacerbated by anxiety and stress. Lab workup today is reassuring with negative troponin x2. EKG does not show any ischemic changes. Low suspicion for ACS at this time. Comfortable discharge home with outpatient follow-up. Return precautions were discussed and patient agrees with plan. Differential Diagnosis Differential Diagnoses: The differential diagnosis associated with the presentation includes ACS, PE, anxiety/panic attack, costochondritis, pericarditis, myocarditis, pneumonia, PTX Admission/Observation Consideration of admission/observation: Escalation of care including admission/observation considered Lab Data MDM Lab Attestation statement: I reviewed the patient's lab results. Mild anemia, mild leukopenia, negative troponin x2 06/09/24 10:02 06/09/24 10:02 Labs: Lab Results 06/09/24 06/09/24 Range/Units 10:02 11:43 WBC 4.3 L (4.8-10.8) X10*3/uL RBC 4.08 L (4.20-5.50) X10*6/uL Hgb 11.9 L (12.0-16.0) g/dl Hct 33.9 L (37.0-47.0) % MCV 83.1 (80.0-98.0) fL MCH 29.2 (27.0-33.0) pg MCHC 35.1 H (31.0-35.0) g/dl RDW 13.0 (11.0-16.0) % Plt Count 237 (160-400) X10*3/uL MPV 9.4 (9.4-12.3) fL Immature Gran % (Auto) 0.2 (0.0-0.4) % Neut % (Auto) 53.5 (45-73) % Lymph % (Auto) 33.4 (20-40) % [place] % (Auto) 9.6 (2-11) % Eos % (Auto) 2.1 (0-4) % Baso % (Auto) 1.2 (0-2) % Lymph # (Auto) 1.4 (1.2-4.9) X10*3/uL [place] # (Auto) 0.4 (0.1-1.2) X10*3/uL Eos # (Auto) 0.1 (0.0-0.4) X10*3/uL Baso # (Auto) 0.1 (0.0-0.2) X10*3/uL Abs Immat Gran (auto) 0.01 (0.00-0.03) X10*3/uL Absolute Neuts (auto) 2.3 (2.0-8.3) x10*3/uL Absolute Nucleated RBC 0.000 (0.0-0.012) X10*3/uL Nucleated RBC % (auto) 0.0 (0.0-0.2) /100WBC Sodium 140 (135-145) mmol/L Potassium 3.9 (3.3-5.1) mmol/L Chloride 106 (96-108) mmol/L Carbon Dioxide 28 (22-29) mmol/L Anion Gap 10 L (12-20) BUN 14 (9-16) mg/dL Creatinine 0.73 (0.5-1.4) mg/dL Estim Creat Clear Calc 104.8 Estimated GFR > 60 Random Glucose 104 (60-115) mg/dL Calcium 9.5 (8.4-10.2) mg/dL Total Bilirubin 0.3 (0.0-1.0) mg/dL AST 20 (5-31) U/L ALT 18 (0-31) U/L Alkaline Phosphatase 83 (39-117) U/L Troponin I High Sens < 2.7 < 2.7 (<3.5-17.0) ng/L Total Protein 6.5 (6.5-8.0) g/dL Albumin 3.6 (3.5-5.0) g/dL Independent Interpretation I performed an independent interpretation of an: EKG Interpretation: EKG with normal sinus rhythm, low-voltage QRS, normal RI interval, normal QRS, no ST segment elevations or depressions, no change from 3 years ago Independent Historian Clinical information obtained from an independent historian. History obtained from or confirmed by: EMS External Record Review External record reviewed: Outpatient record, Prior outpatient labs and Prior outpatient radiology Tests considered The following testing was considered but not selected: Chest x-ray considered, not indicated today Prescription Management I considered prescription management with: Pain Medication and Other (Anxiolytic) Chronic Conditions Patient?s care impacted by: Other (Obesity) Critical Care Time Critical Care Time Critical Care Time: No Discharge Plan Discharge Clinical Impression: Atypical chest pain Patient Disposition: Home, Self-Care Instructions: Noncardiac Chest Pain (ED) Additional Instructions: Your lab work, EKG were reassuring. Recommend following up with your primary care doctor. Rest and drink plenty of fluids. If you develop new or worsening symptoms call 911 or come back to the ER for further evaluation. Prescriptions: No Action omeprazole 40 mg capsule,delayed release(DR/EC) 40 mg PO DAILY 30 Days Qty: 30 0RF melatonin PO BEDTIME Vitamin C PO DAILY clindamycin HCl 300 mg capsule 300 mg PO TID Qty: 20 0RF levofloxacin 750 mg Tablet 750 mg PO Q24H Qty: 5 0RF Interventions: ED Discharge Assessment Last Done: 06/09/24 13:03 Print Language: Indonesian
[2024-06-09 11:37] VITALS: BP 113/57; PULSE 61; RESP 14; TEMP 37; O2SAT 97
--- NOTE | 2024-06-09 11:47 | PC.NURSE ---
vss and up to date at this time. repeat troponin obtained/sent to lab.
[2024-06-09 12:12] LABS: Troponin-I High Sensitivity < 2.7 ng/L (<3.5-17.0)
[2024-06-09 13:03] VITALS: BP 113/57; PULSE 61; RESP 14; TEMP 37; O2SAT 97
== END 2024-06-09 13:03 | disposition home or self-care (01) ==
PROVIDERS: Physician Assistant; Emergency Provider Emergency Medicine Emergency Medical Services; PCP Registered Nurse
DX: R07.89 Other chest pain (principal); R06.02 Shortness of breath; R42 Dizziness and giddiness; F41.9 Anxiety disorder, unspecified; Z79.899 Other long term (current) drug therapy
CPT/HCPCS: 36415; 80053; 84484; 85025; 93005; 99283; 99285

== ENCOUNTER → 2024-06-09 09:29 | Outpatient (BNV) | payer OTHER, SELFPAY | PROVIDERS: Emergency Provider Emergency Medicine Emergency Medical Services; PCP Registered Nurse; Visit Provider Internal Medicine Cardiovascular Disease | DX: R07.9 Chest pain, unspecified (principal) | CPT/HCPCS: 93010 ==